=== PATIENT | male | born 1990 | race African-American/Black ===

== ENCOUNTER 2016-12-06 15:01 | Observation (INO) | payer OTHER, MEDICAID ==
--- NOTE | ~2016-12-06 | DS ---
Unit #: [id number] #: [id number] Patient: ONEL BRODY [id number] [address] [place], [place] [address] [id number] I MR#: [id number] NAME: ONEL BRODY ROOM: [facility] Age: 26 Sex: M Admission Date: 12/06/2016 : 1990 Discharge Date: 12/07/2016 Attending Physician: Maru Martinez M.D. Primary Care Physician: No Primary Care Physician DISCHARGE SUMMARY DISCHARGE DIAGNOSES 1. Cannabinoids-induced hyperemesis. 2. History of inflammatory bowel disease, per CT scan. PATIENT SERVICE SPECIALIST Dr. Parry of gastroenterology. PROCEDURE None. DIAGNOSTIC STUDIES LABORATORY: On the day of discharge, patient's labs include a CMP: Glucose 129, BUN 9, creatinine 1, sodium 132, potassium 3.5, chloride 102, CO2 of 22, calcium 9.7. Total protein was 9.7, albumin 5, total bilirubin 0.6, AST 23, ALT 11, alkaline phosphatase 59, amylase 22, lipase 18. CBC with WBC of 10, RBC 5.03, hemoglobin 15.8, hematocrit 47.1, MCV 93.6, MCH 31.5, MCHC 33.6, RDW 13, platelets 271,000. MVP was 9.7. Urinalysis was unremarkable. IMAGING: The appendix was technically dilated to 9 mm but air filled and demonstrates no additional evidence of acute inflammatory change to suggest acute appendicitis. It was measured up to 8 mm on 2014 study and is felt to be a normal variant. There are trace amounts of free fluid in the pelvis which is abnormal. This is also pseudothickening or low-grade inflammatory infectious change of the majority of the colon suggestive of low-grade colitis in the appropriate clinical context. In addition, there is some subtle wall thickening of the terminal ileum. This also raises the possibility of inflammatory bowel disease in appropriate clinical context. There is no free air or bowel obstruction. Suggestion of some mild fatty infiltration of the liver not mentioned above. HOSPITAL COURSE This patient is a 26-year-old male with a past medical history of umbilical pain, seen in emergency department for multiple times in the past couple of years. Presents to emergency department from [facility] for abdominal pain and diarrhea. Patient has had a couple years of mitchell-umbilical pain, worsened with stress and occasionally worse with certain types of food. He has at times noted weight loss. On the day of admission, he had an episode of abdominal cramping followed by nausea and diarrhea but no recent bright red blood per rectum. He was seen in the emergency department at [facility], was given bolus with 2 L of normal saline, Reglan, Protonix, Zofran, Phenergan and was transferred to [facility] for further evaluation. CT scan suspicious of colitis and possible terminal ileitis. Dr. Parry of gastroenterology was Unit #: [id number] #: [id number] Patient: ONEL BRODY consulted who felt that his symptoms were most likely due to cannabinoid hyperemesis syndrome with cyclic vomiting and had planned for an upper endoscopy but the following day, patient's symptoms had completely resolved and he has opted to do an outpatient procedure. This was confirmed with Dr. Parry. At this time, patient states that he is very hungry and he just wants to go home. Any further endoscopy can be done outpatient with Dr. Parry as myself as well as Dr. Parry have discussed cannabinoid-induced hyperemesis with patient. He voiced understanding. At this time, patient has not had any fever. Had no elevated white count. There is a left shift on differentials. I am giving the patient a prescription for Cipro as well as Flagyl for a total of 7 days. I have told the patient that if his symptoms returns and persists he can start taking the antibiotics but I would hold off on the antibiotics unless symptoms persists and returns and after three days of antibiotics if symptoms do not resolve, he can either call up his primary physician, call Dr. Parry, or come back to the emergency department for re-evaluation. He voiced understanding. At this time, patient is discharged home in stable condition. ACTIVITY Nonrestricted. DIET Nonrestricted. FOLLOWUP 1. The patient is to follow up with Dr. Parry outpatient for any further endoscopy needed. 2. Followup with his primary care physician within one to two weeks. Dictated by... Amrik Macdonald PA-C for Beatriz Yanes TD: 12/07/2016 11:15 JOB #: [id number] DISCHARGE SUMMARY Page 1 of 1 X X DISCHARGE SUMMARY
--- NOTE | ~2016-12-06 | CO ---
Unit #: [id number] #: [id number] Patient: ONEL BRODY [id number] [address] [place], [place] [address] [id number] I MR#: [id number] NAME: ONEL BRODY ROOM: [facility] Age: 26 Sex: M Admission Date: 12/06/2016 : 1990 Attending Physician: India Liz M.D. Primary Care Physician: No Primary Care Physician Consultation Date: 12/07/2016 CONSULTATION REPORT REASON FOR CONSULTATION Nausea, vomiting, diarrhea and abdominal pain. HISTORY OF PRESENT ILLNESS Mr. Xavier Riggs is a 26-year-old gentleman. Patient works as a cook at [employer]. He has presented with a history of nausea, vomiting and upper abdominal pain along with watery, nonbloody diarrhea. The diarrhea has since resolved. The nausea and vomiting are a lot better. The patient says he gets cyclic episodes of vomiting off and on for the past several months. There is no history of weight loss. His appetite is unchanged. In between these episodes he feels well. He occasionally has noticed hematochezia. PAST MEDICAL HISTORY The patient has no significant past medical history. PAST SURGICAL HISTORY He has had no prior surgeries. MEDICATIONS He is not on any medications. ALLERGIES Does not have any allergies. SOCIAL HISTORY He does smoke a pack of cigarettes daily and, as well, smokes marijuana all day long. He does not drink alcohol. FAMILY HISTORY There is no family history of colon or pancreas cancer or liver disease. REVIEW OF SYSTEMS A detailed review of organ systems does not reveal any recent weight loss. No history of fevers, chills or rigors. There is no history of headache, seizures, chest pain or syncope. No history of cough, expectoration or hemoptysis. No history of dysuria, hematuria or polyuria. No history of focal seizures or extremity weakness. The rest of the review of organ systems is unremarkable. PHYSICAL EXAMINATION GENERAL: On examination, he is alert and oriented, appears comfortable. VITAL SIGNS: Vital signs are stable with a temperature of 98.4. Pulse is 70 per minute and regular, respiratory rate 18, blood pressure 132/92. His Unit #: [id number] #: [id number] Patient: ONEL BRODY oxygen saturation is 99% on room air. GENERAL: He has no pallor, icterus, lymphadenopathy or peripheral edema. CARDIOVASCULAR: Examination revealed normal heart sounds. No murmurs on auscultation. RESPIRATORY: The lungs reveal normal breath sounds, good air entry. ABDOMEN: Soft and nontender. Liver and spleen are not palpable. Bowel sounds are normal. DIAGNOSTIC STUDIES LABORATORY: Lab evaluation shows normal CBC and serum chemistry with a blood glucose of 129, sodium 132. LFTs are normal. IMAGING: The patient has had CT scan abdomen and pelvis. The latter shows some low-grade colitis and terminal ileum thickening. CLINICAL IMPRESSION Patient most likely has cannabis hyperemesis syndrome with cyclic vomiting. He needs a diagnostic upper endoscopy, and the single most important element in his treatment would be complete and total cessation of marijuana usage. This was discussed at length with the patient. He has classic symptoms of cannabis hyperemesis syndrome in the form of relief with hot baths and the cyclic nature of the symptoms. The patient wishes not to have any evaluation done at this time and wants to go home. Under the circumstances, an outpatient evaluation is being scheduled, and the patient will be reviewed thereafter. Thank you very much for asking me to see this pleasant gentleman. I appreciate the consult. Dictated by... Beatriz Cunningham/claudette TD: 12/07/2016 08:26 JOB #: [id number] CONSULTATION REPORT Page 1 of 1 X Lionel Parry MD X CONSULTATION REPORT
--- NOTE | ~2016-12-06 | CT2 ---
[facility]. [facility] A Service of [facility] RADIOLOGY TEXT RESULTS PATIENT: ONEL BRODY LOCATION: [place] [address] : [birth year] UNIT #: [id number] AGE: [address]: India Liz MD SEX: M ORDER DR: [id number] [address] [address] [id number] I MR#: [id number] Acc #: [id number] NAME: ONEL BRODY : 1990 SEX: M STUDY DATE/TIME: 12/06/2016 17:20 UNIT: SEDOF ROOM: [id number] STUDY DESCRIPTION: CT Abd and Pelv W Cont Attending Physician: India Liz M.D. Ordering Physician: Naresh Mendosa M.D. MEDICAL IMAGING REPORT This report is preliminary unless electronic signature is present. EXAM Abdomen and pelvis CT with contrast 12/06/2016 INDICATIONS 26-year-old male with vomiting and dizziness since this morning. TECHNIQUE Contrast-enhanced abdomen and pelvis CT was performed. This CT exam was performed with one or more of the following radiation dose reduction techniques: automatic exposure control, adjustment of mA and/or kV according to patient size, and iterative reconstruction. COMPARISON STUDIES 12/28/2013. FINDINGS Included lung bases are clear. No effusion or pericardial effusion. Aorta demonstrates no aneurysm or dissection. Spleen, adrenal glands and pancreas are unremarkable. Gallbladder unremarkable. Liver within normal limits. Kidneys are normal. CT PELVIS: Bladder unremarkable. Prostate within normal limits. Trace free fluid in the pelvis, nonspecific, but abnormal in a male patient. There is pseudo-thickening or low-grade inflammatory change of the colon extending from the level of the ascending colon to the level of the sigmoid colon. Correlate with signs or symptoms of a mild inflammatory or infectious colitis. No drainable fluid collection, bowel obstruction or free air. Appendix is air-filled and technically, mildly dilated up to 9 mm, however there is no inflammatory change of the appendix and it measured 8 mm on the 2013 study and this is felt to represent a normal STS. [facility] A Service of [facility] RADIOLOGY TEXT RESULTS PATIENT: ONEL BRODY LOCATION: [facility] [id number] : [birth year] UNIT #: [id number] AGE: [address]: India Liz MD SEX: M ORDER DR: variant in this patient. No additional evidence of acute appendicitis on CT. Inguinal canals are unremarkable. There is no adenopathy. Similar to the prior study, there is probable mild wall thickening of the distal and terminal ileum. This also raises the possibility of underlying inflammatory bowel disease in this patient. Osseous structures demonstrate no suspicious bone lesion. IMPRESSION 1. The appendix is technically dilated up to 9 mm but air-filled and demonstrates no additional evidence of acute inflammatory change to suggest acute appendicitis. It also measured up to 8 mm on the 2013 study and this is felt to be a normal variant. 2. There is a trace amount of free fluid in the pelvis which is abnormal. There is also pseudo-thickening or low-grade inflammatory or infectious change of the majority of the colon suggestive of low-grade colitis in the appropriate clinical context. In addition, there is some subtle wall thickening of the terminal ileum. This also raises the possibility of inflammatory bowel disease in the appropriate clinical context. There is no free air or bowel obstruction. 3. Suggestion of some mild fatty infiltration of the liver, not mentioned above. Dictated by... Ludwin Oviedo M.D. THIS IS AN ELECTRONICALLY VERIFIED REPORT Ludwin Oviedo M.D. at 12/06/2016 10:50 PM Joi TD: 12/06/2016 22:06 JOB #: [id number] MEDICAL IMAGING REPORT Page 1 of 1
--- NOTE | ~2016-12-06 | HP ---
Unit #: [id number] #: [id number] Patient: ONEL BRODY [id number] [address] [place], [place] [address] [id number] MR#: [id number] NAME: ONEL BRODY ROOM: [facility] Age: 26 Sex: M Admission Date: 12/06/2016 : 1990 Attending Physician: Maru Martinez M.D. Primary Care Physician: No Primary Care Physician HISTORY AND PHYSICAL CHIEF COMPLAINT Abdominal pain with abnormal CT scan of the abdomen. HISTORY This 26-year-old male was transferred from [facility] emergency department for abdominal pain, nausea, and vomiting. Patient tells me that for the past several years, he would experience periumbilical pain worse with stress and occasionally worse with certain types of food. He will, at times, note weight loss. Does experience some mild diarrhea in the morning, but no recent bright red blood per rectum. Did have some episodes of bright red blood per rectum in the remote past. He developed his usual abdominal pain yesterday with nausea, vomiting, and felt very weak. His asked that he be seen in the emergency department at [facility]. There he was bolused with 2 liters of saline and given Reglan, Protonix, Zofran, and Phenergan. Sent to this facility late last evening. On examination, his abdomen currently is benign. A CT scan, however, is suspicious for colitis and possible terminal ileitis. In reviewing his records, the patient was admitted 12/2013 for similar complaints, but did not want to see a GI specialist at that time. I did talk with the patient that he would likely need a colonoscopy, but, at this time, the patient is not particularly interested in a lower scope. PAST MEDICAL HISTORY Episodes of abdominal pain, please see above. ALLERGIES None. HOME MEDICATIONS None. FAMILY HISTORY Diverticulitis and peptic ulcer disease. SOCIAL HISTORY The patient lives with his . He smokes one pack per day of tobacco. Does not drink alcohol. REVIEW OF SYSTEMS Notable for abdominal pain, nausea, vomiting, intermittent weight loss, intermittent diarrhea, and tobacco abuse. All other systems were reviewed and are otherwise negative. Unit #: [id number] #: [id number] Patient: ONEL BRODY PHYSICAL EXAMINATION GENERAL APPEARANCE: 26-year-old male currently in no acute distress. VITAL SIGNS: He has been afebrile and his current temperature is 98.9, pulse 75, respirations 16, O2 saturation 99%, and blood pressure 92/48. HEENT: Eyes: PERRLA. Extraocular muscles are intact. Pharynx: Benign. NECK: Supple without adenopathy or thyromegaly. CHEST: Clear. CARDIAC: Normal S1 and S2 without S3, S4, or murmur. ABDOMEN: Bowels sounds are present and nontender. No hepatosplenomegaly, tenderness, or masses. EXTREMITIES: Without C, C, or E. Pedal pulses are present. NEUROLOGIC: Patient is awake, alert, and oriented. Cranial nerves are intact. Equal strength throughout. DIAGNOSTIC STUDIES LABORATORY: Hematocrit is 47.1 and normal white count and platelet count. SMA-12: Glucose 129, sodium 132, and protein is 9.7. Normal amylase and lipase. Urinalysis: 1+ ketones. IMAGING: CT scan: The appendix is mildly dilated, but without evidence of acute inflammatory changes to suggest appendicitis. Noted to be mildly dilated in the past and this is thought to be a normal variant. Trace amount of free fluid in the pelvis, which is abnormal, and pseudothickening or low-grade inflammatory or infectious changes of the majority of the colon suggesting low-grade colitis. Subtle wall thickening of the terminal ileum. Possible mild fatty infiltration of the liver. ASSESSMENT Many years of intermittent abdominal pain with CT scan suggestive of inflammatory bowel disease. PLANS 1. IV fluids and antiemetics. 2. Stool cultures. 3. Will ask GI consultation, although I am not sure the patient will consent to a colonoscopy. I did tell the patient to at least speak with our GI specialist. Patient is refusing to be NPO so I will write for a clear liquid diet since his current problem seems to be the lower GI tract. Dictated by Beatriz Gordon TD: 12/07/2016 08:08 JOB #: [id number] Unit #: [id number] #: [id number] Patient: CANDIDA RODRIGUEZONEL HISTORY AND PHYSICAL Page 1 of 1 X Alejandrina Lenz MD HISTORY AND PHYSICAL
[~2016-12-06 15:01] MED LIST: CIPRO PO; METRONIDAZOLE PO; NO MEDICATIONS; PHENERGAN PR
[2016-12-06 15:31] LABS: BASOPHIL% 0.4 % (0-2.5); EOSINOPHIL% 0.2 % (0.0-7.0); HEMATOCRIT 47.1 % (38.0-50.0); HEMOGLOBIN 15.8 gm/dL (13.0-16.0); LYMPHOCYTE# 0.6 X10e3 (1.0-3.5); LYMPHOCYTE% 6.2 % (17.0-45.0); MEAN CELL VOLUME 93.6 FL (83-96); MEAN CORPUSCULAR HEMOGLOBIN 31.5 PG (28-34); MEAN CORPUSCULAR HGB CONC 33.6 g/dL (30-36); MEAN PLATELET VOLUME 9.7 FL (6.5-11.5); MONOCYTE# 0.4 X10e3 (0-1.0); MONOCYTE% 4.1 % (3.0-12.0); NEUTROPHIL% 89.1 % (40-75); PLATELET COUNT 241 X10e3 (140-420); RED BLOOD COUNT 5.03 X10e (3.90-5.60)
[2016-12-06 15:37] LABS: DIFF IND NO
[2016-12-06 15:53] LABS: BILIRUBIN, DIRECT 0.1 mg/dL (0.0-0.2); BILIRUBIN,INDIRECT 0.5 mg/dL (0.0-0.9); BILIRUBIN,TOTAL 0.6 mg/dL (0.2-2.0); CALCIUM SERUM 9.7 mg/dL (8.4-10.2); GLOM FILT RATE Estimated 120.7 mL/min (>60); POTASSIUM 3.5 mmol/L (3.5-5.1); PROTEIN TOTAL SERUM 9.7 g/dL (6.0-8.3)
[2016-12-06 18:47] LABS: URINE SOURCE CLEAN CATCH
[2016-12-06 18:49] LABS: URINE APPEARANCE CLEAR; URINE BILIRUBIN NEG (NEG); URINE BLOOD NEG (NEG); URINE COLOR YELLOW; URINE GLUCOSE NEG (NORM); URINE KETONE 1+ (NEG); URINE LEUKOCYTE ESTERASE NEG (NEG); URINE NITRATE NEG (NEG); URINE PROTEIN NEG (NEG); URINE SPECIFIC GRAVITY <=1.005 (1.003-1.035); URINE UROBILINOGEN 0.2 MG/DL (NORM)
[2016-12-06 18:51] LABS: MICRO INDICATED? NO
[2016-12-07] MEDS ORDERED: CIPRO (10:53)
[2016-12-07] MEDS ORDERED: FLAGYL PO (10:54)
[2016-12-07] MEDS ORDERED: CIPRO PO (10:56)
== END 2016-12-07 12:31 | disposition home or self-care (01) | DRG 392 ==
LOC: SED 15:01 → SEDOF 18:36 → C4C 12-07 05:20
PROVIDERS: Emergency Medicine
DX: R11.10 Vomiting, unspecified (principal); F17.210 Nicotine dependence, cigarettes, uncomplicated; Z83.79 Family history of other diseases of the digestive system
CPT/HCPCS: 36415; 74177; 80048; 80076; 81003; 82150; 83690; 85025; 96374; 96375; 99291; C9113; G0378; J2405; J2550; J2765; Q9967